=== PATIENT | female | born 1965 | race Caucasian/White ===

== ENCOUNTER 2019-08-03 08:31 | Emergency (ER) | payer SELFPAY | END 2019-08-03 09:05 | disposition home or self-care (01) | LOC: MADERS 08:31 | DX: K43.9 Ventral hernia without obstruction or gangrene (principal); M06.9 Rheumatoid arthritis, unspecified; M19.90 Unspecified osteoarthritis, unspecified site; Z79.899 Other long term (current) drug therapy | CPT/HCPCS: 99283 ==

== ENCOUNTER 2019-08-21 19:46 | Emergency (ER) | payer SELFPAY ==
[~2019-08-21 19:46] MED LIST: Iopamidol 370 76% 100 ML VIAL ONE
[2019-08-21] MEDS ORDERED: Ondansetron PF 4 MG/2 ML Vial ONE (20:46)
[2019-08-21] MEDS ORDERED: Sodium Chloride 0.9% 1,000 ML ONE ×2 (20:46→23:36)
[2019-08-21] MEDS ORDERED: HYDROmorphone 0.5 MG/0.5 ML SYRINGE ONE (20:46)
[2019-08-21 20:53] LABS: #Eosinphils 0.1 thou/uL (0.0-0.7); #Lymphocytes 1.3 thou/uL (1.20-3.40); #Monocytes 0.6 thou/uL (0.11-0.59); #Neutrophils 6.1 thou/uL (1.40-6.50); %Basophils 0.6 % (0.0-1.0); %Eosinophils 0.9 % (0.0-10.0); %Lymphocytes 15.8 % (21.0-51.0); %Monocytes 7.5 % (0.0-10.0); %Neutrophils 75.1 % (42.0-75.0); Hemoglobin 13.2 g/dL (12.0-16.0); Mean Corpuscular HGB CONC 31.8 g/dL (32.0-36.0); Mean Corpuscular Hemoglobin 29.4 pg (27.0-31.0); Mean Corpuscular Volume 92.3 fL (78.0-98.0); Mean Platelet Volume 7.8 fL (7.4-10.4); Platelet Count 271 thou/uL (130-400); RBC Distribution Width 11.6 % (11.5-14.5); White Blood Cell (WBC) Count 8.1 thou/uL (4.8-10.8)
[2019-08-21] MEDS ORDERED: Piperacillin/Tazobactam 3.375 GM VIAL ONE (20:58)
[2019-08-21] MEDS ORDERED: Sodium Chloride 0.9% 100 ML ONE (20:58)
[2019-08-21 21:04] LABS: ALT (SGPT) 23 U/L (8-55); AST (SGOT) 16 U/L (5-34); Albumin 3.8 g/dL (3.5-5.0); Alkaline Phosphatase 93 U/L (40-110); Anion Gap 16 mmol/L (10-20); BUN (Urea Nitrogen) 9 mg/dL (9.8-20.1); Bilirubin, Total 0.7 mg/dL (0.2-1.2); Calc. Creatinine Clearance 0 mL/min (70-130); Calcium 9.3 mg/dL (7.8-10.44); Carbon Dioxide 24 mmol/L (22-29); Chloride 101 mmol/L (98-107); Estimated GFR-MDRD 73; Globulin 3.7 g/dL (2.4-3.5); Glucose 96 mg/dL (70-105); Potassium 3.9 mmol/L (3.5-5.1); Protein, Total 7.5 g/dL (6.0-8.3); Sodium 137 mmol/L (136-145)
--- NOTE | 2019-08-21 21:52 | CT ---
CT ABDOMEN AND PELVIS WITH CONTRAST: 08/21/19 HISTORY: Abdominal pain. COMPARISON: None. FINDINGS: Lung bases are clear. No pericardial effusion. In the anterior subcutaneous fat along the linea alba, extending through the linea alba along the transversalis fascia is a peripherally enhancing fluid co llection which does have a small sinus tract to the skin. All this collection does measure 5.8 cm i n transverse and AP dimension of 4 cm in the craniocaudal dimension of 10 cm. There appears to be wilner or ventral hernia repair and this collection is just superficial to the repair material. The collection does extend along the more superior margin of the repaired material without intraperit gross extension. There does, however, appear to be tracking along the caudal margin of the repair mat erial in the midline with possible intraperitoneal extension through a secondary possibly noncommunic ating collection. Smaller collection at the inferior margin of the repair measures 4 cm in transverse with AP dimension of 2.5 cm and a craniocaudal dimension of 4.4cm. The spleen, liver, gallbladder, pancreas, adrenal glands are unremarkable. Prior left hemicolectomy. Extensive diverticular disease of the sigmoid colon. No evidence for bowel obstruction. The aortic co ntour is nonaneurysmal. There is no acute osseous abnormality. IMPRESSION: 1. Findings of infected mesh ventral hernia repair and material with multiple peripherally enhan cing collections as described with the largest peripherally enhancing collection having a sinus tract to the skin. Extensive inflammation of the anterior abdominal wall subcutaneous fat. Surgical consul tation is advised. 2. Prior gastric surgery with a small hiatal hernia. POS: HOME
[2019-08-21] MEDS ORDERED: Sodium Chloride 0.9% 250 ML 250 ML ONE (21:57)
== END 2019-08-21 23:41 | disposition short-term general hospital (02) ==
LOC: MADERS 19:46
DX: T85.79XA Infection and inflammatory reaction due to other internal prosthetic devices, implants and grafts, initial encounter (principal); K43.9 Ventral hernia without obstruction or gangrene; M06.9 Rheumatoid arthritis, unspecified; Z79.899 Other long term (current) drug therapy
CPT/HCPCS: 36415; 74177; 80053; 83605; 85025; 87040; 96365; 96367; 96375; 96376; J1170; J2405; J2543; J3370; J3490; J7050; Q9967

== ENCOUNTER 2020-09-15 16:52 | Outpatient (CLI) | payer MEDICARE ==
[2020-09-15 21:41] LABS: #Eosinphils 0.2 thou/uL (0.0-0.7); #Lymphocytes 2.4 thou/uL (1.20-3.40); #Monocytes 0.5 thou/uL (0.11-0.59); #Neutrophils 3.4 thou/uL (1.40-6.50); %Eosinophils 2.4 % (0.0-10.0); %Lymphocytes 37.4 % (21.0-51.0); %Monocytes 7.1 % (0.0-10.0); %Neutrophils 53.1 % (42.0-75.0); Hemoglobin 15.2 g/dL (12.0-16.0); Mean Corpuscular Volume 94.2 fL (78.0-98.0); Mean Platelet Volume 8.5 fL (7.4-10.4); Platelet Count 205 thou/uL (130-400); Red Blood Cell (RBC) Count 4.74 mill/uL (4.20-5.40); White Blood Cell (WBC) Count 6.4 thou/uL (4.8-10.8)
[2020-09-15 21:58] LABS: ALT (SGPT) 15 U/L (8-55); AST (SGOT) 15 U/L (5-34); Albumin 4.3 g/dL (3.5-5.0); Alkaline Phosphatase 101 U/L (40-110); Anion Gap 16 mmol/L (10-20); BUN (Urea Nitrogen) 14 mg/dL (9.8-20.1); Bilirubin, Total 0.7 mg/dL (0.2-1.2); Calc. Creatinine Clearance 0 mL/min (70-130); Calcium 9.6 mg/dL (7.8-10.44); Carbon Dioxide 24 mmol/L (22-29); Chloride 105 mmol/L (98-107); Glucose 92 mg/dL (70-105); Potassium 4.4 mmol/L (3.5-5.1); Protein, Total 7.3 g/dL (6.0-8.3); Sodium 141 mmol/L (136-145)
== END 2020-09-15 16:53 | disposition home or self-care (01) ==
LOC: MADLAB 16:52
PROVIDERS: ATTEND Family Medicine
DX: Z00.00 Encounter for general adult medical examination without abnormal findings (principal); E55.9 Vitamin D deficiency, unspecified; M06.9 Rheumatoid arthritis, unspecified; Z86.39 Personal history of other endocrine, nutritional and metabolic disease
CPT/HCPCS: 36415; 80053; 82306; 85025